=== PATIENT | female | born 1995 | race Caucasian/White ===

== ENCOUNTER 2016-11-21 18:27 | Emergency (ER) | payer BC ==
[2016-11-21] MEDS ORDERED: HYOSCYAMINE SULFATE ODT 0.125 MG TAB.SUBL SL ONE (19:11)
[2016-11-21] MEDS ORDERED: ONDANSETRON HCL IV 4 MG/2 ML VIAL IVP ONE (19:11)
[2016-11-21] MEDS ORDERED: 0.9 % SODIUM CHLORIDE 1000ML 1,000 ML IV SCH (19:15)
--- NOTE | 2016-11-21 19:16 | Emergency Department Record ---
History of Present Illness - General Stated complaint: VOMITING,DIARREAH Time Seen by Provider: 11/21/16 19:11 Source: Patient Mode of Arrival: Ambulatory Limitations: No limitations - History of Present Illness Initial comments: 21 yo female presents to ED with a CC of nausea without vomiting and loose stools for the past several days. Patient denies fevers or chills, but reports several ill contacts (works at a daycare, just started at assisted living as well). Patient denies health problems at her baseline. Patient is s/p appendectomy. MD complaint: Diarrhea, Nausea Onset/Timin -: Days(s) Associated Abdominal Pain: Yes Location: Diffuse (cramping) Radiation: None Severity: Moderate Quality: Cramping Consistency: Constant Improves with: None Worsens with: None - Related Data Home Medications Medication Instructions Recorded Confirmed Last Taken Pnv95/Ferrous Fumarate/FA 1 each PO DAILY 05/26/16 05/26/16 Unknown [ Caplet] Previous Rx's Medication Instructions Recorded Metronidazole [Flagyl] 500 mg PO BID #14 tablet 05/26/16 Dicyclomine HCl [Bentyl] 10 mg PO Q8H PRN #20 cap 11/21/16 Ondansetron [Zofran Odt] 4 mg PO Q6H PRN #20 tab.rapdis 11/21/16 Allergies Allergy/AdvReac Type Severity Reaction Status Date / Time No Known Drug Allergies Allergy Verified 01/30/16 11:12 Review of Systems Constitutional: Denies: Chills, Fever, Malaise, Night sweats Eyes: Denies: Eye discharge, Eye pain ENT: Denies: Ear pain, Epistaxis Respiratory: Denies: Cough, Dyspnea Cardiovascular: Denies: Chest pain, Dyspnea on exertion Endocrine: Denies: Fatigue, Heat or cold intolerance Gastrointestinal: Reports: Abdominal pain, Diarrhea, Nausea. Denies: Constipation, Vomiting Genitourinary: Denies: Dysuria, Frequency, Hematuria, Incontinence Musculoskeletal: Denies: Arthralgia, Back pain, Gout, Joint swelling Skin: Denies: Bruising, Change in color Neurological: Denies: Abnormal gait, Confusion, Headache, Seizure Psychiatric: Denies: Anxiety Hematological/Lymphatic: Denies: Anemia, Blood Clots Past Medical History - SOCIAL HISTORY Smoking Status: Former smoker Drug Use: None - RESPIRATORY Hx Respiratory Disorders: No - CARDIOVASCULAR Hx Cardio Disorders: No - NEURO Hx Neuro Disorders: Yes Hx Headaches: Yes (Migraines) - GI Hx GI Disorders: Yes Hx Reflux: Yes - Hx Genitourinary Disorders: No - ENDOCRINE Hx Endocrine Disorders: No - MUSCULOSKELETAL Hx Musculoskeletal Disorders: No - PSYCH Hx Psych Problems: No - HEMATOLOGY/ONCOLOGY Hx Hematology/Oncology Disorders: No Family Medical History Hx Stroke: Grandparents Physical Exam - General General Appearance: Alert, Oriented x3, Cooperative, Mild distress Limitations: No limitations - Head Head exam: Atraumatic, Normocephalic, Normal inspection Head exam detail: negative: Abrasion, Contusion, Brody's sign, General tenderness, Hematoma, Laceration - Eye Eye exam: Normal appearance. negative: Conjunctival injection, Periorbital swelling, Periorbital tenderness, Scleral icterus - ENT ENT exam: Mucous membranes dry Ear exam: negative: Auricular hematoma, Auricular trauma Nasal Exam: negative: Active bleeding, Discharge, Dried blood, Foreign body Mouth exam: negative: Drooling, Laceration, Muffled voice, Tongue elevation - Neck Neck exam: Normal inspection. negative: Meningismus, Tenderness - Respiratory Respiratory exam: Normal lung sounds bilaterally. negative: Rales, Respiratory distress, Rhonchi, Stridor - Cardiovascular Cardiovascular Exam: Regular rate, Normal rhythm, Normal heart sounds - GI/Abdominal GI/Abdominal exam: Soft. negative: Rebound, Rigid, Tenderness - Rectal Rectal exam: Deferred - exam: Deferred - Extremities Extremities exam: Normal inspection. negative: Calf tenderness, Pedal edema, Tenderness - Back Back exam: Denies: CVA tenderness (R), CVA tenderness (L) - Neurological Neurological exam: Alert, Normal gait, Oriented X3 - Psychiatric Psychiatric exam: Normal affect, Normal mood - Skin Skin exam: Normal color. negative: Abrasion Type of lesion: negative: abrasion Course Vital Signs 11/21/16 19:07 Temperature 98.4 F Pulse Rate [ 82 Pulse Ox Probe] Respiratory 18 Rate Blood Pressure 131/89 [Left Arm] Pulse Ox 100 - Reevaluation(s) Reevaluation #1: 11/21/16 19:59 Labs reviewed and are grossly unremarkable for an acute process. UA is pending at this time. Reevaluation #2: 11/21/16 20:25 UA reviewed, appeawrs mildly contaminated without evidence for infection. Patient reassessed, reports improvement in her nausea symptoms, reports that her cramping symptoms have not significantly improved. Will administer Bentyl for her continued symptoms. Reevaluation #3: 11/21/16 21:19 Patient was updated on all results, reports improvement in her symptoms and appears stable for discharge at this time. Medical Decision Making - Lab Data Result diagrams: 11/21/16 19:25 11/21/16 19:25 Disposition Disposition: Discharge Clinical Impression: Nausea Diarrhea Qualifiers: Diarrhea type: unspecified type Qualified Code(s): R19.7 - Diarrhea, unspecified Disposition: Home, Self-Care Condition: (2) Stable Instructions: Acute Nausea and Vomiting (ED) Additional Instructions: Return to ED if your symptoms worsen or if you have any concerns. Zofran as directed. Follow-up with your family doctor in 3-5 days as directed. Prescriptions: Dicyclomine HCl [Bentyl] 10 mg PO Q8H PRN #20 cap PRN Reason: Abdominal Pain Ondansetron [Zofran Odt] 4 mg PO Q6H PRN #20 tab.rapdis PRN Reason: Nausea/Vomiting Time of Disposition: 21:20
[2016-11-21 19:35] LABS: GRAN % 75.6 % (47-80); HEMATOCRIT 43.5 % (35.0-47.0); HEMOGLOBIN 15.1 gm/dl (11.6-16.0); MEAN CELL VOLUME 89.7 fl (81-97); MEAN CORPUSCULAR HEMOGLOBIN 31.1 pg (27-33); MEAN CORPUSCULAR HGB CONC 34.7 g/dl (32-36); MONO % 6.4 % (0-9); PLATELET COUNT 197 K/uL (130-400); RED BLOOD COUNT 4.85 M/uL (3.80-5.40); RED CELL DISTRIBUTION WIDTH 11.8 % (11.5-14.5); WHITE BLOOD COUNT W/O DIFF 5.9 K/uL (4.2-12.2)
[2016-11-21 19:45] LABS: ALB/GLOB RATIO 1.6 (1.1-1.8); ALBUMIN 4.6 gm/dL (3.5-5.0); ALKALINE PHOSPHATASE 66 U/L (38-126); ALT/SGPT 35 U/L (9-52); ANION GAP 13.8 (7-16); AST/SGOT 23 U/L (14-36); BILIRUBIN,TOTAL 0.32 mg/dL (0.2-1.3); BLOOD UREA NITROGEN 11 mg/dL (7-17); CARBON DIOXIDE 23.2 mmol/L (22-30); CREATININE 0.8 mg/dL (0.52-1.04); EST GLOMERULAR FILTRATION RATE > 60 ml/min; GLUCOSE,RANDOM 80 mg/dL (70-110); LIPASE 32 U/L (23-300); TOTAL PROTEIN 7.5 gm/dL (6.3-8.2)
[2016-11-21 20:04] LABS: URINE APPEARANCE CLEAR; URINE BILIRUBIN SMALL (NEGATIVE); URINE BLOOD MODERATE (NEGATIVE); URINE COLOR YELLOW; URINE GLUCOSE (UA) NEGATIVE (NEGATIVE); URINE KETONE NEGATIVE (NEGATIVE); URINE LEUKOCYTE ESTERASE NEGATIVE (NEGATIVE); URINE NITRITE NEGATIVE (NEGATIVE); URINE UROBILINOGEN 0.2 E.U./dL (0.20 - 1.00)
[2016-11-21 20:11] LABS: HCG,QUALITATIVE URINE NEGATIVE (NEGATIVE)
[2016-11-21 20:23] LABS: URINE AMORPHOUS SEDIMENT 1+; URINE MUCUS MODERATE; URINE WBC 0 - 2 (0-2/hpf)
[2016-11-21] MEDS ORDERED: DICYCLOMINE HCL 10 MG/ML AMPUL IM ONE (20:27)
== END 2016-11-21 21:28 | disposition home or self-care (01) ==
LOC: ER 18:27
DX: R19.7 Diarrhea, unspecified (principal); R11.2 Nausea with vomiting, unspecified
CPT/HCPCS: 99284 ×2; 96374; 96372; 96361; 83690; 85025; 80053; 81001; 81025; J1980; J2405; J7030

== ENCOUNTER 2016-11-22 07:39 | Inpatient (IN) | payer BC ==
--- NOTE | 2016-11-22 07:49 | Emergency Department Record ---
History of Present Illness - General Stated Complaint: ABD PAIN Time Seen by Provider: 11/22/16 07:44 Source: Patient Mode of Arrival: Ambulatory Limitations: No limitations - History of Present Illness Initial Comments: 21 yo female presents with a few days of nausea with crampy diarrhea. No fever or blood in either. She was seen in the ED last night. 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 She has had her appendix out. The labs last night, urine , and test were unremarkable. The cramps are sharp and frequent mostly around the umbilicus MD Complaint: Abdominal pain Location: Periumbilical Radiation: None Migration to: No migration Severity: Moderate, Severe Quality: Aching, Sharp, Stabbing Consistency: Intermittent Improves With: Nothing Worsens With: Nothing Associated Symptoms: Anorexia - Related Data Home Medications Medication Instructions Recorded Confirmed Last Taken Dextroamphetamine/Amphetamine 30 mg PO DAILY 11/22/16 11/22/16 11/20/16 [Dextroamp-Amphetamin 30 mg Tab] Norethindrone AC-Eth Estradiol 1 tab PO DAILY 11/22/16 11/22/16 11/22/16 [Junel 1.5 mg-30 Mcg Tablet] Previous Rx's Medication Instructions Recorded Dicyclomine HCl [Bentyl] 10 mg PO Q8H PRN #20 cap 11/21/16 Ondansetron [Zofran Odt] 4 mg PO Q6H PRN #20 tab.rapdis 11/21/16 Allergies Allergy/AdvReac Type Severity Reaction Status Date / Time No Known Drug Allergies Allergy Verified 11/22/16 08:01 Review of Systems Constitutional: Reports: Malaise. Denies: Chills, Fever Eyes: Denies: Eye discharge ENT: Denies: Congestion Respiratory: Denies: Cough, Dyspnea, Hemoptysis, Stridor, Wheezes Cardiovascular: Denies: Chest pain, Palpitations Endocrine: Denies: Fatigue Gastrointestinal: Reports: Abdominal pain, Diarrhea, Nausea. Denies: Constipation, Hematemesis, Hematochezia Genitourinary: Denies: Dysuria, Frequency Musculoskeletal: Denies: Arthralgia, Back pain, Neck pain Skin: Denies: Bruising, Change in color, Rash Neurological: Denies: Confusion, Headache Psychiatric: Denies: Anxiety Hematological/Lymphatic: Denies: Blood Clots, Easy bleeding, Easy bruising, Swollen glands Past Medical History - SOCIAL HISTORY Smoking Status: Former smoker Drug Use: None - RESPIRATORY Hx Respiratory Disorders: No - CARDIOVASCULAR Hx Cardio Disorders: No - NEURO Hx Neuro Disorders: Yes Hx Headaches: Yes (Migraines) - GI Hx GI Disorders: Yes Hx Reflux: Yes - Hx Genitourinary Disorders: No - ENDOCRINE Hx Endocrine Disorders: No - MUSCULOSKELETAL Hx Musculoskeletal Disorders: No - PSYCH Hx Psych Problems: No - HEMATOLOGY/ONCOLOGY Hx Hematology/Oncology Disorders: No Family Medical History Hx Stroke: Grandparents Physical Exam - General General Appearance: Alert, Oriented x3, Cooperative, No acute distress Limitations: No limitations - Head Head exam: Normal inspection - Eye Eye exam: Normal appearance, PERRL. negative: Conjunctival injection - ENT ENT exam: Normal exam Ear exam: Normal external inspection Nasal Exam: Normal inspection Mouth exam: Normal external inspection Teeth exam: Normal inspection Throat exam: Normal inspection - Neck Neck exam: Normal inspection, Full ROM. negative: Tenderness - Respiratory Respiratory exam: Normal lung sounds bilaterally. negative: Respiratory distress - Cardiovascular Cardiovascular Exam: Regular rate, Normal rhythm, Normal heart sounds - GI/Abdominal GI/Abdominal exam: Soft, Tenderness (soft abdomen, mildly tender left of the umbilicus). negative: Distended - Rectal Rectal exam: Deferred - exam: Deferred - Extremities Extremities exam: Normal inspection, Full ROM, Normal capillary refill. negative: Tenderness - Back Back exam: Reports: Normal inspection, Full ROM. Denies: Muscle spasm, Rash noted, Tenderness - Neurological Neurological exam: Alert, Normal gait, Oriented X3 - Psychiatric Psychiatric exam: Normal affect, Normal mood. negative: Anxious - Skin Skin exam: Dry, Intact, Normal color, Warm Course - Reevaluation(s) Reevaluation #1: The lab tests were reviewed No acute changes on the CBC. HCO3 20.1 otherwise normal CMP 11/22/16 09:04 Reevaluation #2: the patient reports she is doing much better with well tolerated nausea and cramps. 11/22/16 09:08 Reevaluation #3: The patient's symptoms of pain, nausea and vomiting returned. I recommend CT scan given the recurrence of symptoms with pain. 11/22/16 11:45 Reevaluation #4: The stool studies were reviewed She is C diff negative, Rota negative, She is cryptosporidium positive. 11/22/16 13:[address] scan was negative for acute obstruction or inflammation, few LN noted. the patient remains nauseated and crampy unable to hold down any fluids. I informed the infection production control scheduler at [facility] Roxane Lopez given this is reportable 11/22/16 13:13 Reevaluation #5: the treatment for crypto is Nitazoxamide 500mg BID. 11/22/16 14:37 Medical Decision Making - Lab Data Result diagrams: 11/22/16 08:40 11/22/16 08:40 Disposition Disposition: Admit Clinical Impression: Cryptosporidial gastroenteritis Diarrhea Qualifiers: Diarrhea type: unspecified type Qualified Code(s): R19.7 - Diarrhea, unspecified Decision to Admit: Admit from ER Decision to Admit Date: 11/22/16 Decision to Admit Time: 13:23 Time Discussed w/Accepting Physician: 13:23 Time of Disposition: 13:23
[2016-11-22] MEDS ORDERED: ONDANSETRON HCL IV 4 MG/2 ML VIAL IV ONE (08:24)
[2016-11-22] MEDS ORDERED: DICYCLOMINE HCL 10 MG CAPSULE PO ONE (08:24)
[2016-11-22] MEDS ORDERED: 0.9 % SODIUM CHLORIDE 1,000 ML BAG IV ONE ×2 (08:24→09:08)
[2016-11-22] MEDS ORDERED: 0.9 % SODIUM CHLORIDE 1000ML 1,000 ML IV ONE (08:24)
[2016-11-22] MEDS ORDERED: KETOROLAC 30 MG/ML VIAL IVP ONE (08:25)
[2016-11-22] MEDS ORDERED: MORPHINE SULFATE 5 MG/ML PFS IVP ONE ×2 (08:28→12:26)
[2016-11-22 08:47] LABS: HEMATOCRIT 41.7 % (35.0-47.0); HEMOGLOBIN 14.6 gm/dl (11.6-16.0); MEAN CELL VOLUME 89.3 fl (81-97); MEAN CORPUSCULAR HEMOGLOBIN 31.3 pg (27-33); MEAN PLATELET VOLUME 11.2 fl (7.4-10.4); PLATELET COUNT 198 K/uL (130-400); RED BLOOD COUNT 4.67 M/uL (3.80-5.40); RED CELL DISTRIBUTION WIDTH 11.6 % (11.5-14.5); WHITE BLOOD COUNT W/O DIFF 6.6 K/uL (4.2-12.2)
[2016-11-22 08:59] LABS: ALB/GLOB RATIO 1.5 (1.1-1.8); ALBUMIN 4.3 gm/dL (3.5-5.0); ALKALINE PHOSPHATASE 65 U/L (38-126); ALT/SGPT 32 U/L (9-52); ANION GAP 14.9 (7-16); AST/SGOT 25 U/L (14-36); BILIRUBIN,TOTAL 0.27 mg/dL (0.2-1.3); BLOOD UREA NITROGEN 12 mg/dL (7-17); CARBON DIOXIDE 20.1 mmol/L (22-30); CREATININE 0.8 mg/dL (0.52-1.04); EST GLOMERULAR FILTRATION RATE > 60 ml/min; GLUCOSE,RANDOM 92 mg/dL (70-110); LIPASE 33 U/L (23-300); TOTAL PROTEIN 7.2 gm/dL (6.3-8.2)
[2016-11-22 09:15] LABS: URINE APPEARANCE CLEAR; URINE BILIRUBIN MODERATE (NEGATIVE); URINE BLOOD LARGE (NEGATIVE); URINE COLOR YELLOW; URINE GLUCOSE (UA) NEGATIVE (NEGATIVE); URINE KETONE 15 mg/dL (NEGATIVE); URINE LEUKOCYTE ESTERASE NEGATIVE (NEGATIVE); URINE NITRITE NEGATIVE (NEGATIVE); URINE UROBILINOGEN 0.2 E.U./dL (0.20 - 1.00)
[2016-11-22 10:01] LABS: PLATELET ESTIMATE NORMAL (NORMAL)
[2016-11-22 10:02] LABS: URINE BACTERIA FEW; URINE WBC 0 - 2 (0-2/hpf)
[2016-11-22] MEDS ORDERED: ONDANSETRON HCL IV 4 MG/2 ML VIAL IVP ONE (11:35)
[2016-11-22 11:43] LABS: MOLECULAR C DIFF TOXIN SCREEN NOT DETECTED
[2016-11-22 11:58] LABS: CRYPTOSPORIDIUM PARVUM ANTIGEN DETECTED (NOT DETECT); GIARDIA LAMBLIA ANTIGEN NOT DETECTED (NOT DETECT)
[2016-11-22] MEDS ORDERED: PROMETHAZINE HCL 25 MG/ML VIAL IVP ONE (12:07)
[2016-11-22] MEDS: ONDANSETRON HCL IV 4 MG/2 ML VIAL IVP PRN (16:55)
[2016-11-22] MEDS: ACETAMINOPHEN 500 MG TABLET PO PRN (17:42)
[2016-11-22] MEDS: MORPHINE SULFATE 5 MG/ML PFS IVP PRN ×2 (17:43→21:19)
[2016-11-23] MEDS: MORPHINE SULFATE 5 MG/ML PFS IVP PRN ×4 (00:46→13:51)
[2016-11-23] MEDS: 0.9 % SODIUM CHLORIDE 1000ML 1,000 ML IV PRN ×2 (01:00→20:00)
[2016-11-23] MEDS: ACETAMINOPHEN 500 MG TABLET PO PRN ×2 (01:06→08:59)
--- NOTE | 2016-11-23 07:17 | CT SCAN REPORT ---
EXAM: CT OF THE ABDOMEN AND PELVIS WITH CONTRAST HISTORY: ABDOMINAL PAIN FOR THREE DAYS. TECHNIQUE: Sequential axial images were obtained from the diaphragms through the ischiorectal fossa after intravenous administration of 100 ml of Omnipaque 300 contrast material. FINDINGS: The visualized lung bases appear normal. The liver, gallbladder, pancreas, and spleen appear normal. The adrenal glands and kidneys appear normal. The appendix is surgically absent. There are nonspecific mildly prominent lymph nodes in the small bowel mesentery. Findings are likely related to gastroenteritis versus mesenteric adenitis. The colon appears normal. The uterus and adnexal structures appear normal. The urinary bladder appears normal. The osseous structures are normal. IMPRESSION: NONSPECIFIC MILDLY PROMINENT LYMPH NODES IN THE SMALL BOWEL MESENTERY. FINDINGS ARE LIKELY RELATED TO GASTROENTERITIS OR MESENTERIC ADENITIS. THE APPENDIX IS SURGICALLY ABSENT. JOB NUMBER: [id number] [facility]
--- NOTE | 2016-11-23 07:39 | History & Physical ---
History of Present Illness - Date of Service Date of Service for History & Physical: 11/23/16 - History of Present Illness Admitting Diagnosis: cryptosporidium gastroenteritis, intractable vomiting History of Present Illness: Lisa Serrano is a 21 y/o female with no significant medical history admitted for cryptosporidium gastroenteritis. 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 Denies fever, hematochezia, melena, hematemesis. Does have cows at home, reports 1 of them has had diarrhea and cold-like symptoms for the past 2 weeks PMX: Migranes, GERD PSH: tonsillectomy, right hand surgery, bilateral bunionectomy, appendectomy PCP: Keke Sánchez NP Travel Screening - Travel/Exposure Within Last 30 Days Have you traveled within the last 30 days?: No - Travel/Exposure Within Last Year Have you traveled outside the [place] in the last year?: No - Additonal Travel Details Have you been exposed to anyone with a communicable illness?: No - Travel Symptoms Symptom Screening: None Review of Systems Constitutional: Reports: Malaise. Denies: Chills, Fever Eyes: Denies: Eye discharge ENT: Denies: Congestion Respiratory: Denies: Cough, Dyspnea, Hemoptysis, Stridor, Wheezes Cardiovascular: Denies: Chest pain, Palpitations Endocrine: Denies: Fatigue Gastrointestinal: Reports: Abdominal pain, Diarrhea, Nausea. Denies: Constipation, Hematemesis, Hematochezia Genitourinary: Denies: Dysuria, Frequency Musculoskeletal: Denies: Arthralgia, Back pain, Neck pain Skin: Denies: Bruising, Change in color, Rash Neurological: Denies: Confusion, Headache Psychiatric: Denies: Anxiety Hematological/Lymphatic: Denies: Blood Clots, Easy bleeding, Easy bruising, Swollen glands Past Medical History - SOCIAL HISTORY Smoking Status: Former smoker Alcohol Use: Rare Drug Use: None - RESPIRATORY Hx Respiratory Disorders: No - CARDIOVASCULAR Hx Cardio Disorders: No - NEURO Hx Neuro Disorders: Yes Hx Headaches: Yes (Migraines) - GI Hx GI Disorders: Yes Hx Reflux: Yes - Hx Genitourinary Disorders: No - ENDOCRINE Hx Endocrine Disorders: No - MUSCULOSKELETAL Hx Musculoskeletal Disorders: No - PSYCH Hx Psych Problems: No - HEMATOLOGY/ONCOLOGY Hx Hematology/Oncology Disorders: No Family Medical History Any Significant Family History?: No Hx Stroke: Grandparents H&P Meds/Allergies - Allergies Allergies: Allergies Allergy/AdvReac Type Severity Reaction Status Date / Time No Known Drug Allergies Allergy Verified 11/22/16 08:01 - Home Medications Home Medications Medication Instructions Recorded Confirmed Last Taken Dextroamphetamine/Amphetamine 30 mg PO DAILY 11/22/16 11/22/16 11/20/16 [Dextroamp-Amphetamin 30 mg Tab] Norethindrone AC-Eth Estradiol 1 tab PO DAILY 11/22/16 11/22/16 11/22/16 [Junel 1.5 mg-30 Mcg Tablet] Previous Rx's Medication Instructions Recorded Dicyclomine HCl [Bentyl] 10 mg PO Q8H PRN #20 cap 11/21/16 Ondansetron [Zofran Odt] 4 mg PO Q6H PRN #20 tab.rapdis 11/21/16 - Active Medications Active Medications: Current Medications Acetaminophen (Tylenol 500mg Tab) 1,000 mg PO Q6H PRN PRN Reason: FEVER Last Admin: 11/23/16 01:06 Dose: 1,000 mg Sodium Chloride () 1,000 mls @ 125 mls/hr IV .Q8H PRN PRN Reason: LARGE VOLUME IV Last Admin: 11/23/16 01:00 Dose: 125 mls/hr Morphine Sulfate (Morphine Sulfate) 5 mg IVP Q4HR PRN PRN Reason: Pain - General Stop: 11/29/16 15:44 Last Admin: 11/23/16 05:08 Dose: 5 mg Non-Formulary Medication (Dextroamphetamine/Amphetamine [Dextroamp-Amphetamin 30 Mg Tab]) 30 mg PO DAILY [facility] Non-Formulary Medication (Norethindrone Ac-Eth Estradiol [Junel 1.5 Mg-30 Mcg Tablet]) 1 tab PO DAILY MARIA R Ondansetron HCl (Zofran) 4 mg IVP Q4H PRN PRN Reason: NAUSEA Last Admin: 11/22/16 16:55 Dose: 4 mg Patient Own Medication () 500 each PO BID MARIA R Stop: 11/29/16 23:59 Promethazine HCl (Phenergan) 12.5 mg IVP Q4H PRN PRN Reason: NAUSEA Physical Exam - Vital Signs Vital Signs: Vital Signs - Last 24 Hrs Temp Pulse Resp BP Pulse Ox 11/23/16 01:03 99.9 F H 88 18 100/55 99 11/22/16 22:30 99.3 F 11/22/16 22:13 20 11/22/16 16:36 16 11/22/16 15:43 101.9 F H 108 H 16 112/69 98 - General General Appearance: Alert, Oriented x3, Cooperative, No acute distress Limitations: No limitations - Head Head exam: Normal inspection - Eye Eye exam: Normal appearance, PERRL. negative: Conjunctival injection - ENT ENT exam: Normal exam Ear exam: Normal external inspection Nasal Exam: Normal inspection Mouth exam: Normal external inspection Teeth exam: Normal inspection Throat exam: Normal inspection - Neck Neck exam: Normal inspection, Full ROM. negative: Tenderness - Respiratory Respiratory exam: Normal lung sounds bilaterally. negative: Respiratory distress - Cardiovascular Cardiovascular Exam: Regular rate, Normal rhythm, Normal heart sounds Peripheral Pulses: 3+: Dorsalis Pedis (R), Dorsalis Pedis (L) - GI/Abdominal GI/Abdominal exam: Soft, Tenderness (soft abdomen, generalized tenderness). negative: Distended - Rectal Rectal exam: Deferred - exam: Deferred - Extremities Extremities exam: Normal inspection, Full ROM, Normal capillary refill. negative: Tenderness - Back Back exam: Reports: Normal inspection, Full ROM. Denies: Muscle spasm, Rash noted, Tenderness - Neurological Neurological exam: Alert, Normal gait, Oriented X3 - Psychiatric Psychiatric exam: Normal affect, Normal mood. negative: Anxious - Skin Skin exam: Dry, Intact, Normal color, Warm Results - Labs Result Diagrams: 11/22/16 08:40 11/22/16 08:40 - Imaging and Cardiology CT scan - abdomen Status: Report reviewed (Findings likely related to gastroenteritis or mesenteric adenitis, appendix surgically absent) VTE H&P Assessment - Risk for VTE Risk for VTE: Yes Risk Level: Moderate Risk Assessment Date: 11/23/16 Risk Assessment Time: 07:41 VTE Orders Placed or Will Be Placed: Yes Plan - Detailed Diagnosis and Plan (1) Cryptosporidial gastroenteritis Current Visit: Yes Status: Acute Base Code: A07.2 - CRYPTOSPORIDIOSIS Comment: 11/23- Admitted for cryptosporidium gastroenteritis - No travel outside of [place], suspicious food or water source - Does have a cow with diarrhea and col-like symptoms for the past 2 weeks - 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 (2) DVT prophylaxis Current Visit: Yes Status: Acute Base Code: [id number] - Comment: 11/23- Lovenox 40mg SQ QD during this hospitalization (3) Full code status Current Visit: Yes Status: Acute Base Code: Z78.9 - OTHER SPECIFIED HEALTH STATUS Comment: 11/23- will remain full code status during this hospitalization
[2016-11-23] MEDS: AMPHETAMINE PO SCH (10:57)
[2016-11-23] MEDS: [UNRECOGNIZED DRUG - OTHER] PO SCH (10:57)
[2016-11-23] MEDS: DEXTROAMPHETAMINE PO SCH (10:57)
[2016-11-23] MEDS: NORETHINDRONE AC ETH ESTRADIOL PO SCH (11:11)
[2016-11-23] MEDS: ENOXAPARIN 40 MG/0.4 ML SYR SQ SCH (11:14)
--- NOTE | 2016-11-23 13:39 | Discharge Summary ---
Providers Discharge Summary Date: 11/23/16 Date of admission: 11/22/16 15:29 Expected Date of Discharge: 11/23/16 Attending physician: SHAKILA LISA Primary care physician: AYO BETHEA Physical Exam - Vital Signs Vital Signs: Vital Signs - Last 24 Hrs Temp Pulse Resp BP BP Pulse Ox 11/23/16 09:18 99.9 F H 100/55 11/23/16 01:03 99.9 F H 88 18 100/55 99 11/22/16 22:30 99.3 F 11/22/16 22:13 20 11/22/16 16:36 16 11/22/16 15:43 101.9 F H 108 H 16 112/69 98 - General General Appearance: Alert, Oriented x3, Cooperative, No acute distress Limitations: No limitations - Head Head exam: Normal inspection - Eye Eye exam: Normal appearance, PERRL. negative: Conjunctival injection - ENT ENT exam: Normal exam Ear exam: Normal external inspection Nasal Exam: Normal inspection Mouth exam: Normal external inspection Teeth exam: Normal inspection Throat exam: Normal inspection - Neck Neck exam: Normal inspection, Full ROM. negative: Tenderness - Respiratory Respiratory exam: Normal lung sounds bilaterally. negative: Respiratory distress - Cardiovascular Cardiovascular Exam: Regular rate, Normal rhythm, Normal heart sounds Peripheral Pulses: 3+: Dorsalis Pedis (R), Dorsalis Pedis (L) - GI/Abdominal GI/Abdominal exam: Soft, Tenderness (soft abdomen, generalized tenderness). negative: Distended - Rectal Rectal exam: Deferred - exam: Deferred - Extremities Extremities exam: Normal inspection, Full ROM, Normal capillary refill. negative: Tenderness - Back Back exam: Reports: Normal inspection, Full ROM. Denies: Muscle spasm, Rash noted, Tenderness - Neurological Neurological exam: Alert, Normal gait, Oriented X3 - Psychiatric Psychiatric exam: Normal affect, Normal mood. 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 - Plan to give first dose of Nitazoxamide PO today, give Immodium and Zofran PRN to support hydration, will stay for dinner tonight to be sure she is tolerating medications. Plan to discharge at that time (2) DVT prophylaxis Current Visit: Yes Status: Acute Base Code: [id number] - Comment: 11/23- Lovenox 40mg SQ QD during this hospitalization (3) Full code status Current Visit: Yes Status: Acute Base Code: Z78.9 - OTHER SPECIFIED HEALTH STATUS Comment: 11/23- will remain full code status during this hospitalization - Hospitalization Course Condition at Discharge: (2) Stable Discharge Medications - Discharge Medications Home Medications: Ambulatory Orders Dicyclomine HCl [Bentyl] 10 mg PO Q8H PRN #20 cap 11/21/16 [Last Taken Unknown] Ondansetron [Zofran Odt] 4 mg PO Q6H PRN #20 tab.rapdis 11/21/16 [Last Taken 02/03] Dextroamphetamine/Amphetamine [Dextroamp-Amphetamin 30 mg Tab] 30 mg PO DAILY [Last Taken 11/20/16] Norethindrone AC-Eth Estradiol [Junel 1.5 mg-30 Mcg Tablet] 1 tab PO DAILY 11/22 [Last Taken 11/22/16] Discharge Plan - Discharge Instructions Activity at Discharge: Increase Activity as Tolerated Diet at Discharge: Regular Diet
[2016-11-23] MEDS: NITAZOXANIDE 500 MG PO SCH (13:49)
[2016-11-23] MEDS: ONDANSETRON HCL IV 4 MG/2 ML VIAL IVP PRN (14:45)
[2016-11-23] MEDS ORDERED: IBUPROFEN 600 MG TABLET PO PRN (16:07)
[2016-11-23] MEDS: LOPERAMIDE 2 MG CAPSULE PO PRN (16:13)
[2016-11-23] MEDS: IBUPROFEN 400 MG TABLET PO PRN (16:15)
[2016-11-23] MEDS: PROMETHAZINE HCL 25 MG/ML VIAL IVP PRN ×2 (18:25→22:55)
[2016-11-23] MEDS ORDERED: HYDROCODONE/APAP 5/325MG TABLET PO PRN (18:40)
[2016-11-24] MEDS: NITAZOXANIDE 500 MG PO SCH ×2 (00:03→10:47)
[2016-11-24] MEDS: LOPERAMIDE 2 MG CAPSULE PO PRN ×2 (00:04→07:58)
[2016-11-24] MEDS: 0.9 % SODIUM CHLORIDE 1000ML 1,000 ML IV PRN (04:26)
[2016-11-24 06:11] LABS: BASO % 0.5 % (0-6); EOS % 4.2 % (0-6); GRAN % 59.1 % (47-80); HEMATOCRIT 34.6 % (35.0-47.0); HEMOGLOBIN 11.9 gm/dl (11.6-16.0); LYMPH % 21.9 % (16-45); MEAN CELL VOLUME 90.1 fl (81-97); MEAN CORPUSCULAR HGB CONC 34.4 g/dl (32-36); MEAN PLATELET VOLUME 11.4 fl (7.4-10.4); MONO % 14.3 % (0-9); PLATELET COUNT 159 K/uL (130-400); RED BLOOD COUNT 3.84 M/uL (3.80-5.40); RED CELL DISTRIBUTION WIDTH 11.7 % (11.5-14.5); WHITE BLOOD COUNT W/O DIFF 4.1 K/uL (4.2-12.2)
[2016-11-24] MEDS: PROMETHAZINE HCL 25 MG/ML VIAL IVP PRN (06:20)
[2016-11-24 06:27] LABS: ALB/GLOB RATIO 1.2 (1.1-1.8); ALBUMIN 3.1 gm/dL (3.5-5.0); ALKALINE PHOSPHATASE 47 U/L (38-126); ALT/SGPT 37 U/L (9-52); AST/SGOT 27 U/L (14-36); BILIRUBIN,TOTAL 0.15 mg/dL (0.2-1.3); BLOOD UREA NITROGEN 4 mg/dL (7-17); CREATININE 0.7 mg/dL (0.52-1.04); EST GLOMERULAR FILTRATION RATE > 60 ml/min; GLUCOSE,RANDOM 88 mg/dL (70-110); TOTAL PROTEIN 5.7 gm/dL (6.3-8.2)
[2016-11-24] MEDS ORDERED: PROMETHAZINE HCL 25 MG TABLET PO PRN (09:53)
[2016-11-24] MEDS: ENOXAPARIN 40 MG/0.4 ML SYR SQ SCH (10:46)
[2016-11-24] MEDS: DEXTROAMPHETAMINE PO SCH (10:46)
[2016-11-24] MEDS: [UNRECOGNIZED DRUG - OTHER] PO SCH (10:46)
[2016-11-24] MEDS: AMPHETAMINE PO SCH (10:46)
[2016-11-24] MEDS: NORETHINDRONE AC ETH ESTRADIOL PO SCH (10:46)
[2016-11-24] MEDS: IBUPROFEN 400 MG TABLET PO PRN (12:16)
== END 2016-11-24 13:52 | disposition home or self-care (01) | DRG 373 ==
LOC: ER 07:39 → MEDSURG 15:29 → OBSVTOIN 15:29
PROVIDERS: ADMIT Family Medicine; ATTEND Family Medicine
DX: A07.2 Cryptosporidiosis (principal); Z78.9 Other specified health status
CPT/HCPCS: 74177; 80053; 81001; 82272; 83690; 85025; 85027; 87329; 87425; 87427; 87493; 89055; 96361; 96374; 96375; 96376; 99223; 99239; 99285; J1650; J1885; J2405; J2550; J7030; Q0170

== ENCOUNTER 2017-12-09 17:45 | Emergency (ER) | payer BC, MEDICAID ==
[2017-12-09] MEDS ORDERED: METOCLOPRAMIDE HCL 10 MG/2 ML VIAL IVP ONE (18:14)
[2017-12-09] MEDS ORDERED: DIPHENHYDRAMINE HCL IV 50 MG/ML VIAL IVP ONE (18:14)
[2017-12-09] MEDS ORDERED: KETOROLAC 30 MG/ML VIAL IVP ONE (18:14)
[2017-12-09] MEDS ORDERED: 0.9 % SODIUM CHLORIDE 1000ML 1,000 ML IV SCH (18:15)
--- NOTE | 2017-12-09 18:18 | Emergency Department Record ---
History of Present Illness - General Chief Complaint: Headache Migraine Stated Complaint: HEADACHE Time Seen by Provider: 12/09/17 18:12 Source: Patient Mode of Arrival: Ambulatory Limitations: No limitations - History of Present Illness Initial Comments: 22 yo female presents to ED for evaluation of headache symptoms that began 3 days ago, have been waxing and waning, but worsened this afternoon into a "migraine". Patient reports that she takes Amyltriptaline each night for chronic headache symptoms that has not helped with today's headache. Patient denies fevers, chills, or neck stiffness symptoms. Patient also denies the use of anticoagulation medications. MD Complaint: Headache Onset/Timin -: Days(s) Onset Description: Gradual Location: Diffuse Severity: Moderate Quality: Throbbing, Similar to previous headaches Consistency: Constant Improves With: Nothing Worsens With: None Treatments Prior to Arrival: Migraine medication - Related Data Home Medications Medication Instructions Recorded Confirmed Last Taken Dextroamphetamine/Amphetamine 30 mg PO DAILY 12/09/17 12/09/17 Unknown [Adderall] Allergies Allergy/AdvReac Type Severity Reaction Status Date / Time No Known Drug Allergies Allergy Unverified 07/08/17 15:00 Review of Systems Constitutional: Denies: Chills, Fever, Malaise, Night sweats Eyes: Denies: Eye discharge, Eye pain ENT: Denies: Congestion, Ear pain, Epistaxis Respiratory: Denies: Cough, Dyspnea Cardiovascular: Denies: Chest pain, Dyspnea on exertion Endocrine: Denies: Fatigue, Heat or cold intolerance Gastrointestinal: Denies: Abdominal pain, Nausea, Vomiting Genitourinary: Denies: Incontinence, Retention Musculoskeletal: Denies: Arthralgia, Back pain Skin: Denies: Bruising, Change in color Neurological: Reports: Headache. Denies: Abnormal gait, Confusion Psychiatric: Denies: Anxiety Hematological/Lymphatic: Denies: Anemia, Blood Clots Past Medical History - SOCIAL HISTORY Smoking Status: Former smoker Drug Use: None - RESPIRATORY Hx Respiratory Disorders: No - CARDIOVASCULAR Hx Cardio Disorders: No - NEURO Hx Neuro Disorders: Yes Hx Headaches: Yes (Migraines) - GI Hx GI Disorders: Yes Hx Reflux: Yes - Hx Genitourinary Disorders: No - ENDOCRINE Hx Endocrine Disorders: No - MUSCULOSKELETAL Hx Musculoskeletal Disorders: No - PSYCH Hx Psych Problems: No - HEMATOLOGY/ONCOLOGY Hx Hematology/Oncology Disorders: No Family Medical History Hx Stroke: Grandparents Physical Exam - General General Appearance: Alert, Oriented x3, Cooperative, Moderate distress Limitations: No limitations - Head Head exam: Atraumatic, Normocephalic, Normal inspection Head exam detail: negative: Abrasion, Contusion, Brody's sign, General tenderness, Hematoma, Laceration - Eye Eye exam: Normal appearance. negative: Conjunctival injection, Periorbital swelling, Periorbital tenderness, Scleral icterus - ENT Ear exam: negative: Auricular hematoma, Auricular trauma Nasal Exam: negative: Active bleeding, Discharge, Dried blood, Foreign body Mouth exam: negative: Drooling, Laceration, Muffled voice, Tongue elevation - Neck Neck exam: Normal inspection. negative: Meningismus, Tenderness - Respiratory Respiratory exam: Normal lung sounds bilaterally. negative: Respiratory distress, Rhonchi, Stridor, Wheezes - Cardiovascular Cardiovascular Exam: Regular rate, Normal rhythm, Normal heart sounds - GI/Abdominal GI/Abdominal exam: Soft. negative: Distended, Rebound, Rigid, Tenderness - Rectal Rectal exam: Deferred - exam: Deferred - Extremities Extremities exam: Normal inspection. negative: Pedal edema, Tenderness - Back Back exam: Denies: CVA tenderness (R), CVA tenderness (L) - Neurological Neurological exam: Alert, Normal gait, Oriented X3 - Psychiatric Psychiatric exam: Normal affect, Normal mood - Skin Skin exam: Normal color. negative: Abrasion Type of lesion: negative: abrasion Course - Reevaluation(s) Reevaluation #1: 12/09/17 19:56 Patient reassessed and reports significant improvement in her headache symptoms. Patient reports that she is ready to go home at this time and appears stable for discharge. Disposition Disposition: Discharge Clinical Impression: Headache Qualifiers: Headache type: unspecified Headache chronicity pattern: acute headache Intractability: not intractable Qualified Code(s): R51 - Headache Disposition: Home, Self-Care Condition: (2) Stable Instructions: Acute Headache (ED) Additional Instructions: Return to ED if your symptoms worsen or if you have any concerns. Follow-up with your family doctor in 3-5 days as directed. Forms: Patient Portal Access Time of Disposition: 19:58 Quality - Quality Measures Quality Measures: N/A - Blood Pressure Screening Does Patient Have Any of the Following: No Blood Pressure Classification: Pre-Hypertensive BP Reading Systolic Measurement: 137 Diastolic Measurement: 74 Screening for High Blood Pressure: < Pre-Hypertensive BP, F/U Documented > [ [id number]] Pre-Hypertensive Follow-up Interventions: Referral to alternative/primary care provider.
== END 2017-12-09 20:07 | disposition home or self-care (01) ==
LOC: ER 17:45
DX: R51 Headache (principal); Z87.891 Personal history of nicotine dependence
CPT/HCPCS: 99284 ×2; 96374; 96375; J1885; J1200; J2765; J7030